=== PATIENT | female | born 1965 | race Caucasian/White ===

== ENCOUNTER → 2020-01-28 | Outpatient (CLI) | payer BC ==
[2016-12-04 21:46] VITALS: BP 100/70
[~2020-01-28] MED LIST: HYOS0.1265 SL; LEVO25TA55 PO; ONDA4TAB10 SL
--- NOTE | 2020-01-28 12:35 | KCIC ---
EXAM: Bilateral digital screening mammogram with tomosynthesis. HISTORY: 54-year-old female presents for screening mammography. TECHNIQUE: Full-field digital craniocaudal and mediolateral oblique 2D and 3D tomosynthesis images of both breasts are obtained for evaluation. Computer aided detection with [employer] software version 9.3 was applied. COMPARISON: 01/11/2015 BREAST PARENCHYMAL DENSITY: Level D - Extremely dense. FINDINGS: There are multiple areas of nodular asymmetry within the right breast which appear more conspicuous compared to the prior exam, possibly due to differences in technique. The most conspicuous of these is seen within the 10:30 position at mid depth in the craniocaudal projection. There is no suspicious calcification or distortion within either breast. IMPRESSION: BI-RADS Category 0: Additional imaging needed. RECOMMENDATION: Further evaluation with a right breast sonogram is recommended to assess multiple areas of nodular asymmetry, predominantly at the 10:30 position at mid depth. If your mammogram demonstrates that you have dense breast tissue, which could hide abnormalities, and if you have other risk factors for breast cancer that have been identified, you might benefit from supplemental screening tests that may be suggested by your ordering physician. Dense breast tissue, in and of itself, is a relatively common condition. This information is not provided to cause undue concern, but rather to raise your awareness and to promote discussion with your physician regarding the presence of other risk factors, in addition to dense breast tissue. A report of your mammography results will be sent to you and your physician. You should contact your physician if you have any questions or concerns regarding this report. Mammography is a sensitive method for finding small breast cancers, but it does not detect them all and is not a substitute for careful clinical examination. A negative mammogram does not negate a clinically suspicious finding and should not result in delay in biopsying a clinically suspicious abnormality. PQRS compliance statement - Patient information was entered into a reminder system with a target due date for the next mammogram. "Our facility is accredited by the [employer] Mammography [employer]." Electronically signed by: Idalia Cotto MD (01/28/2020 12:32 PM) [id number]
== END | disposition home or self-care (01) ==
LOC: KCIC MAMMO 11:03
PROVIDERS: ATTEND Family Medicine
DX: Z12.31 Encounter for screening mammogram for malignant neoplasm of breast (principal)
CPT/HCPCS: 77063; 77067

== ENCOUNTER → 2020-02-09 | Outpatient (CLI) | payer BC ==
[2016-12-04 21:46] VITALS: BP 100/70
--- NOTE | 2020-02-09 12:50 | KCIC ---
Right breast ultrasound: Reason for examination: Nodular densities on screening mammogram. Comparison is made to mammographic exam dated 01/28/2020. Right whole breast ultrasound including evaluation of all 4 quadrants and the retroareolar and axillary regions of the right breast was performed. There is a 6 mm hypoechoic circumscribed lesion with posterior acoustic enhancement at the 12:00 position 4 cm from the nipple which probably represents a complicated cyst. There is a small 3.2 mm fibrocystic lesion at the 5:00 position 6 cm from the nipple. There is a small hypoechoic circumscribed lesion at the 11:00 retroareolar position with some posterior acoustic enhancement measuring 9 mm in greatest dimension which probably represents a complicated cyst. There is a 9.6 mm hypoechoic circumscribed lesion with posterior acoustic enhancement at the 11:30 position 4 cm from the nipple which also probably represents a complicated cyst. No suspicious-appearing nodules are seen. No abnormal appearing lymph nodes are seen in the axilla. IMPRESSION: Small subcentimeter hypoechoic circumscribed nodules with some posterior acoustic enhancement which probably represent complicated cysts. No suspicious-appearing lesions are seen. Recommend 6 month follow-up with ultrasound. BI-RADS Category 3: Probably Benign. "Our facility is accredited by the [employer] Mammography [employer]." This patient's information has been entered into a reminder system for the patient to be notified with the results of her examination and a target date for the next mammogram. Electronically signed by: Bhargavi Dewitt MD (02/09/2020 12:47 PM) [id number]
== END | disposition home or self-care (01) ==
LOC: KCIC US 11:43
PROVIDERS: ATTEND Family Medicine
DX: N63.10 Unspecified lump in the right breast, unspecified quadrant (principal)
CPT/HCPCS: 76641

== ENCOUNTER → 2020-02-24 | Outpatient (CLI) | payer BC ==
[2016-12-04 21:46] VITALS: BP 100/70
[2020-02-24 15:55] LABS: BASO % 1 % (0-3); EOS # 0.6 x10^3/uL (0.0-0.7); EOS % 9 % (0-3); HEMATOCRIT 34.4 % (36.0-47.0); HEMOGLOBIN 11.5 g/dL (12.0-15.5); LYMPH # 1.6 x10^3/uL (1.0-4.8); LYMPH % 23 % (24-48); MEAN CORPUSCULAR HEMOGLOBIN 29 pg (25-35); MEAN CORPUSCULAR HGB CONC 34 g/dL (31-37); MEAN CORPUSCULAR VOLUME 88 fL (79-100); MONO # 0.7 x10^3/uL (0.0-1.1); MONO % 10 % (0-9); NEUT # 4.1 x10^3/uL (1.8-7.7); NEUT % 58 % (31-73); PLATELET COUNT 237 x10^3/uL (140-400); RED BLOOD COUNT 3.93 x10^6/uL (3.50-5.40); RED CELL DISTRIBUTION WIDTH 13.2 % (11.5-14.5); WHITE BLOOD COUNT 7.1 x10^3/uL (4.0-11.0)
[2020-02-24 16:05] LABS: BARBITURATES NEG (NEG); BENZODIAZEPINES NEG (NEG); CANNABINOIDS NEG (NEG); COCAINE NEG (NEG); METHADONE NEG (NEG); OPIATES NEG (NEG); PHENCYCLIDINE NEG (NEG)
[2020-02-24 16:07] LABS: AMPHETAMINE/METHAMPHETAMINE NEG (NEG)
[2020-02-24 16:19] LABS: ALBUMIN 3.6 g/dL (3.4-5.0); CALCIUM 8.2 mg/dL (8.5-10.1); CREATININE 0.7 mg/dL (0.6-1.0); GFR 87.9; POTASSIUM 3.6 mmol/L (3.5-5.1); TOTAL BILIRUBIN 0.3 mg/dL (0.2-1.0); TOTAL PROTEIN 7.2 g/dL (6.4-8.2)
== END ==
LOC: LAB 14:52
PROVIDERS: ATTEND Psychiatry & Neurology Neurology
DX: R51 Headache (principal)
CPT/HCPCS: 36415; 80053; 80307; 85025; 85651

== ENCOUNTER → 2020-03-01 | Outpatient (CLI) | payer BC ==
[2016-12-04 21:46] VITALS: BP 100/70
[2020-03-01] MEDS: GADOTERATE 5 MMOL/10ML VIAL. IVP ONE (13:33)
--- NOTE | 2020-03-01 13:47 | KCIC ---
BRAIN WO/W CONTRAST Date: 03/01/2020 12:30 PM Indication: Headache for several months Comparison: None. Technique: Multiplanar multisequence MRI of the brain was performed with and without intravenous contrast using the standard protocol. 10 cc Dotarem contrast was administered intravenously during the exam. Findings: No acute infarct. No acute or chronic hemorrhage. The ventricles are normal in size and configuration without hydrocephalus. Mild generalized cerebral volume loss, advanced for patient's age. No abnormal enhancement. Mild scalloping of the calvarium. The pituitary and sella are normal. No Chiari malformation. The visualized upper cervical spine is normal. The visualized orbits and globes are normal. Mild ethmoid and frontal sinus mucosal thickening. The mastoid air cells are clear. Normal flow voids within the vertebral, basilar, and internal carotid arteries indicating patency. IMPRESSION: 1. No acute infarct or hemorrhage. No mass or abnormal enhancement. 2. Mild scalloping of the calvarium, which may be congenital but can also be seen in the setting of increased intracranial pressure. Clinical correlation is advised. 3. Mild generalized cerebral volume loss, advanced for patient's age. Electronically signed by: Abner Antony MD (03/01/2020 1:45 PM) [id number]
== END | disposition home or self-care (01) ==
LOC: KCIC MRI 12:03
PROVIDERS: ATTEND Psychiatry & Neurology Neurology
DX: G93.89 Other specified disorders of brain (principal); J34.89 Other specified disorders of nose and nasal sinuses; R51 Headache
CPT/HCPCS: 70553; A9575

== ENCOUNTER 2020-07-27 04:26 | Emergency (ER) | payer BC ==
[~2020-07-27] VITALS: Ht 177.8 cm; Wt 54.5 kg
[2020-07-27 04:57] LABS: BASO % 0 % (0-3); EOS # 0.2 x10^3/uL (0.0-0.7); EOS % 1 % (0-3); HEMATOCRIT 36.6 % (36.0-47.0); HEMOGLOBIN 12.3 g/dL (12.0-15.5); LYMPH # 1.9 x10^3/uL (1.0-4.8); LYMPH % 12 % (24-48); MEAN CORPUSCULAR HEMOGLOBIN 30 pg (25-35); MEAN CORPUSCULAR HGB CONC 34 g/dL (31-37); MEAN CORPUSCULAR VOLUME 88 fL (79-100); MONO # 1.4 x10^3/uL (0.0-1.1); MONO % 9 % (0-9); NEUT # 11.9 x10^3/uL (1.8-7.7); NEUT % 77 % (31-73); PLATELET COUNT 218 x10^3/uL (140-400); RED BLOOD COUNT 4.15 x10^6/uL (3.50-5.40); WHITE BLOOD COUNT 15.4 x10^3/uL (4.0-11.0)
--- NOTE | 2020-07-27 04:59 | EKG ---
[facility] [address] [place] [address] Test Date: 2020-07-27 Test Time: 04:35:30 Pat Name: CATHY HARDING Department: Room: Gender: F [employer]: : [id number] Requested By: ANDREE COLE Order Number: [id number] Reading MD: Measurements Intervals [place] Rate: 57 P: 48 [place]: 148 QRS: 27 QRSD: 74 T: 56 QT: 430 QTc: 422 Interpretive Statements SINUS RHYTHM NO SPECIFIC ECG ABNORMALITIES RI6.02 No previous ECG available for comparison
[2020-07-27] MEDS ORDERED: ASPIRIN 325 MG TABLET PO ONE (05:00)
[2020-07-27 05:06] LABS: CALCIUM 7.6 mg/dL (8.5-10.1); CREATININE 0.7 mg/dL (0.6-1.0); GFR 87.9; POTASSIUM 3.5 mmol/L (3.5-5.1); PROTHROMBIN TIME PATIENT 13.2 SEC (11.7-14.0)
[2020-07-27 05:12] LABS: ALBUMIN 3.4 g/dL (3.4-5.0); TOTAL BILIRUBIN 0.6 mg/dL (0.2-1.0); TOTAL PROTEIN 6.9 g/dL (6.4-8.2)
--- NOTE | 2020-07-27 05:34 | PHYS DOC ---
Past Medical History Past Medical History: Anxiety, Hypothyroid, Other Additional Past Medical Histor: back pain from pinched nerve Past Surgical History: Other Additional Past Surgical Histo: thyroidectomy Smoking Status: Never Smoker Alcohol Use: Occasionally Drug Use: None General Adult EDM: Chief Complaint: CHEST PAIN HPI: HPI: Patient is a 54 year old F who presents with chest pain that radiates from her R back. This pain began around 10:30 last night while she was laying in bed and was only the back pain. This morning at 1:30, this pain radiated to her chest and woke her from sleep. She states she was short of breath at the time of waking up and that it was hard to take a deep breath. She states the pain is on/off, feels like a sharp pressure, and rates it as a 8/10. She states she is nauseous but denies diaphoresis. Pt also states her mother is in town and that can be very anxiety inducing. Review of Systems: Review of Systems: Constitutional: Denies fever or chills Eyes: Denies redness or eye pain HENT: Denies nasal congestion or sore throat Respiratory: Denies cough, report shortness of breath. Cardiovascular: Denies palpitation; reports chest pain GI: Denies abdominal pain, vomiting; reports nausea. : Denies dysuria or hematuria Musculoskeletal: Denies back pain or joint pain Integument: Denies rash or skin lesions Neurologic: Denies headache, focal weakness or sensory changes Complete systems were reviewed and found to be within normal limits, except as documented in this note. Heart Score: HEART Score for Chest Pain: HEART Score for Chest Pain Response (Comments) Value History Slighlty/Non-Suspicious 0 ECG Normal 0 Age >45 - < 65 1 Risk Factors No Risk Factors 0 Troponin < Normal Limit 0 Total 1 Risk Factors: Risk Factors: DM, Current or recent (<one month) smoker, HTN, HLP, family history of CAD, obesity. Risk Scores: Score 0 - 3: 2.5% MACE over next 6 weeks - Discharge Home Score 4 - 6: 20.3% MACE over next 6 weeks - Admit for Clinical Observation Score 7 - 10: 72.7% MACE over next 6 weeks - Early Invasive Strategies Current Medications: Current Medications Medications (Trade) Dose Ordered Sig/Katheryn Start Time Stop Time Status Last Admin Dose Admin Aspirin (Alexander Aspirin) 325 mg 1X ONCE 07/27/20 05:00 07/27/20 05:01 DC 07/27/20 05:06 325 MG Allergies: Allergies: Allergies Coded Allergies Type Severity Reaction Last Updated Verified No Known Drug Allergies 09/24/15 No Physical Exam: PE: Constitutional: Well developed, well nourished. HENT: Normocephalic, atraumatic Eyes: EOMI, conjunctiva normal, no discharge Neck: Normal range of motion, supple Lungs & Thorax: No respiratory distress, equal chest rise and fall Abdomen: Soft, no tenderness Skin: Warm, dry, no erythema, no rash Back: Tender to palpation on R paraspinal muscles. No CVA tenderness. Extremities: No tenderness, ROM intact, no edema Neurologic: Alert and oriented X 3, no focal deficits noted Psychologic: Affect normal, judgment normal Current Patient Data: Labs: Laboratory Tests Test 07/27/20 04:35 White Blood Count 15.4 x10^3/uL (4.0-11.0) H Red Blood Count 4.15 x10^6/uL (3.50-5.40) Hemoglobin 12.3 g/dL (12.0-15.5) Hematocrit 36.6 % (36.0-47.0) Mean Corpuscular Volume 88 fL (79-100) Mean Corpuscular Hemoglobin 30 pg (25-35) Mean Corpuscular Hemoglobin Concent 34 g/dL (31-37) Red Cell Distribution Width 13.0 % (11.5-14.5) Platelet Count 218 x10^3/uL (140-400) Neutrophils (%) (Auto) 77 % (31-73) H Lymphocytes (%) (Auto) 12 % (24-48) L Monocytes (%) (Auto) 9 % (0-9) Eosinophils (%) (Auto) 1 % (0-3) Basophils (%) (Auto) 0 % (0-3) Neutrophils # (Auto) 11.9 x10^3/uL (1.8-7.7) H Lymphocytes # (Auto) 1.9 x10^3/uL (1.0-4.8) Monocytes # (Auto) 1.4 x10^3/uL (0.0-1.1) H Eosinophils # (Auto) 0.2 x10^3/uL (0.0-0.7) Basophils # (Auto) 0.0 x10^3/uL (0.0-0.2) Sodium Level 137 mmol/L (136-145) Potassium Level 3.5 mmol/L (3.5-5.1) Chloride Level 99 mmol/L (98-107) Carbon Dioxide Level 30 mmol/L (21-32) Anion Gap 8 (6-14) Blood Urea Nitrogen 21 mg/dL (7-20) H Creatinine 0.7 mg/dL (0.6-1.0) Estimated GFR (Cockcroft-Gault) 87.9 BUN/Creatinine Ratio 30 (6-20) H Glucose Level 90 mg/dL (70-99) Calcium Level 7.6 mg/dL (8.5-10.1) L Magnesium Level 2.0 mg/dL (1.8-2.4) Total Bilirubin 0.6 mg/dL (0.2-1.0) Aspartate Amino Transferase (AST) 12 U/L (15-37) L Alanine Aminotransferase (ALT) 20 U/L (14-59) Alkaline Phosphatase 54 U/L (46-116) Troponin I Quantitative < 0.017 ng/mL (0.000-0.055) OJ-Bru-P-Type Natriuretic Peptide 242 pg/mL (0-124) H Total Protein 6.9 g/dL (6.4-8.2) Albumin 3.4 g/dL (3.4-5.0) Albumin/Globulin Ratio 1.0 (1.0-1.7) Lipase 138 U/L (73-393) Laboratory Tests 07/27/20 04:35 Laboratory Tests 07/27/20 04:35 Vital Signs: Vital Signs Date Time Temp Pulse Resp B/P (MAP) Pulse Ox O2 Delivery O2 Flow Rate FiO2 07/27/20 04:31 97.5 59 18 110/66 (81) 100 Room Air 97.5 EKG: EKG: @0435 Normal sinus rhythm with T wave inversions in V1 and V2. QRS 74 ms, QT 430 ms, QTc 422 ms In comparison to prior EKG from 09/24/2015 per cardioserv review, no new changes except T wave inversions in V2. . Radiology/Procedures: Radiology/Procedures: [] Course & Med Decision Making: Course & Med Decision Making Pertinent Labs and Imaging studies reviewed. (See chart for details) [] Dragon Disclaimer: Dragon Disclaimer: This electronic medical record was generated, in whole or in part, using a voice recognition dictation system. Departure Departure Impression: Primary Impression: Acute thoracic back pain Qualified Codes: M54.6 - Pain in thoracic spine Additional Impression: Atypical chest pain Disposition: HOME, SELF-CARE Condition: STABLE Referrals: LEXI MARIO MD (PCP) Patient Instructions: Chest Pain (Nonspecific), [id number], Thoracic Strain, [id number] Additional Instructions: ICE area 20 min on then leave off next 20 mins. Repeat several times daily as needed for pain. Take over the counter Tylenol and/or Ibuprofen for pain or discomfort. Scripts Orphenadrine Citrate (ORPHENADRINE CITRATE) 100 Mg Tablet.er 100 MG PO BID PRN for MUSCLE PAIN, #14 TAB Prov: ANDREE COLE DO 07/27/20 Justicifation of Admission Dx: Justifications for Admission: Justification of Admission Dx: N/A ANDREE COLE DO Jul 27, 2020 05:34
[2020-07-27 05:45] LABS: D-DIMER 0.33 ug/mlFEU (0.00-0.50)
[2020-07-27 06:04] VITALS: BP 102/67
[2020-07-27] MEDS ORDERED: ORPH100T PO (06:19)
[2020-07-27] MEDS ORDERED: KETOROLAC 15 MG/ML VIAL. IVP ONE (06:30)
[2020-07-27] MEDS ORDERED: ORPHENADRINE CITRATE 60 MG/2 ML VIAL. IV ONE (06:30)
--- NOTE | 2020-07-27 06:30 | RAD ---
EXAM: CHEST 1 VIEW History: Chest pain COMPARISON: 12/04/2016 TECHNIQUE: Single portable radiograph of the chest FINDINGS: The cardiac silhouette is unremarkable. Mild prominent bilateral interstitial lung markings could be chronic interstitial changes. Probably scarring changes identified in the right apical lung similar to prior exam. The costophrenic sulci are clear and well demarcated . IMPRESSION: Mild prominent bilateral interstitial lung markings could be chronic interstitial changes. Electronically signed by: Gil Ley MD (07/27/2020 6:27 AM) [id number]
== END 2020-07-27 06:38 | disposition home or self-care (01) ==
LOC: ER 04:26
DX: M54.6 Pain in thoracic spine (principal); R07.89 Other chest pain; R06.02 Shortness of breath; R11.0 Nausea; F41.9 Anxiety disorder, unspecified; E03.9 Hypothyroidism, unspecified; Z90.89 Acquired absence of other organs; Z98.890 Other specified postprocedural states
CPT/HCPCS: 36415; 71045; 80053; 83690; 83735; 83880; 84484; 85025; 85379; 85610; 85730; 93005; 96374; 96375; 99285; J1885; J2360